=== PATIENT | female | born 1955 | race Caucasian/White ===

== ENCOUNTER 2021-09-06 11:04 | Outpatient (REF) | payer MEDICARE, SELFPAY ==
[2021-09-06 12:14] LABS: MANUAL DIFF FLAG NO
[2021-09-06 12:41] LABS: Basophils Percent Auto 0.7 % (0-2); Eosinophils Absolute Auto 0.1 X10*3/uL (0.0-0.4); Eosinophils Percent Auto 2.2 % (0-4); Hematocrit 38.2 % (37-47); Hemoglobin 12.5 g/dl (12.0-16.0); Imm Gran Abs Auto 0.02 X10*3/uL (0.00-0.03); Imm Gran Pct Auto 0.4 % (0.0-0.4); Lymphocytes Absolute Auto 1.5 X10*3/uL (1.2-4.9); Lymphocytes Percent Auto 27.3 % (20-40); Mean Corpuscular HGB Conc 32.7 g/dl (31.0-35.0); Mean Corpuscular Hemoglobin 29.1 pg (27.0-33.0); Mean Platelet Volume 9.7 fL (9.4-12.3); Monocytes Absolute Auto 0.4 X10*3/uL (0.1-1.2); Monocytes Percent Auto 6.8 % (2-11); Neutrophils Absolute Auto 3.4 X10*3/uL (2.0-8.3); Neutrophils Percent Auto 62.6 % (45-73); Platelet Count 224 X10*3/uL (160-400); Red Blood Count 4.29 X10*6/uL (4.20-5.50); Red Cell Distribution Width 12.5 % (11.0-16.0); White Blood Count 5.5 X10*3/uL (4.8-10.8)
[2021-09-06 14:03] LABS: Erythrocyte Sedimentation Rate 7 MM/HR (0-20)
[2021-09-08 11:36] LABS: IgA 332 mg/dL (70-320); IgG 747 mg/dL (600-1540); IgM 28 mg/dL (50-300)
== END 2021-09-06 11:05 | disposition home or self-care (01) ==
LOC: HO.LAB 11:04
PROVIDERS: PCP Internal Medicine; Visit Provider Hospitalist
DX: R05.3 Chronic cough (principal); J31.0 Chronic rhinitis; Z91.09 Other allergy status, other than to drugs and biological substances
CPT/HCPCS: 36415; 82784; 82785; 85025; 85652; 86003; 99202

== ENCOUNTER 2021-10-21 10:47 | Outpatient (REF) | payer MEDICARE, SELFPAY ==
--- NOTE | 2021-10-21 | PFT_ITS ---
Forced vital capacity and FEV1 are both slightly increased. FMA02-61 and MVV normal. Post bronchodilator therapy, there is no change. Total lung capacity is slightly increased. Residual volume normal. Diffusion capacity normal. CONCLUSION: Normal pulmonary function test and no evidence of obstructive or restrictive pulmonary disorder. Warren Montenegro MD MSB/MODL / [id number]
== END 2021-10-21 10:48 | disposition home or self-care (01) ==
LOC: HO.RESP 10:47
PROVIDERS: PCP Internal Medicine; Visit Provider Hospitalist
DX: R06.00 Dyspnea, unspecified (principal)
CPT/HCPCS: 94060; 94727; 94729; 99212

== ENCOUNTER → 2022-06-15 12:49 | Outpatient (BNVA) | payer MEDICARE, SELFPAY | PROVIDERS: PCP Internal Medicine; Visit Provider Hospitalist | DX: J44.9 Chronic obstructive pulmonary disease, unspecified (principal); R05.3 Chronic cough; J31.0 Chronic rhinitis; J45.20 Mild intermittent asthma, uncomplicated | CPT/HCPCS: 99212 ==